=== PATIENT | male | born 1960 | race Caucasian/White ===

== ENCOUNTER 2024-11-14 13:52 | Outpatient (CLI) | payer MEDICARE, SELFPAY ==
--- NOTE | 2024-11-14 14:03 | XR_ITS ---
WS: [id number] XR ribs LT 2V* [id number] REASON FOR EXAM: CHEST DISCOMFORT/R SIDED RIB PAIN FINDINGS: No acute rib fracture or rib lesion. No underlying pleural abnormality. XR/XR ribs LT 2V* [id number] IMPRESSION: No significant rib abnormality.
--- NOTE | 2024-11-14 14:03 | XR_ITS ---
WS: [id number] XR chest 2V* [id number] REASON FOR EXAM: CHEST DISCOMFORT/R SIDED RIB PAIN FINDINGS: Moderate tortuosity and mild ectasia of the thoracic aorta with normal heart size. Calcified granulomas disease bilaterally. There is an ill-defined area of lung opacity at the level of the aortic arch on the PA view which is difficult to localize on the lateral view. There is irregular lucency in the upper lung lopez. The hemidiaphragms are mildly flattened. Mild wedge-shaped compression deformity of T6 of unknown chronicity. XR/XR chest 2V* [id number] IMPRESSION: No acute abnormality. Probable obstructive lung disease. Opacity in the upper left lung could represent postinflammatory change however a more significant abnormality could exist. A CT scan of the chest is recommend ed and follow-up to exclude lung mass.
== END 2024-11-14 13:53 | disposition home or self-care (01) ==
PROVIDERS: PCP Family Medicine; Visit Provider Nurse Practitioner Family
DX: R07.89 Other chest pain (principal); R07.81 Pleurodynia; R91.8 Other nonspecific abnormal finding of lung field; I77.810 Thoracic aortic ectasia; J84.10 Pulmonary fibrosis, unspecified; M48.54XA Collapsed vertebra, not elsewhere classified, thoracic region, initial encounter for fracture
CPT/HCPCS: 71046; 71100

== ENCOUNTER 2024-12-17 13:50 | Outpatient (CLI) | payer MEDICARE, SELFPAY ==
--- NOTE | 2024-12-17 14:02 | CTR_ITS ---
PROCEDURE INFORMATION: Exam: CT Chest With Contrast; Diagnostic Exam date and time: 12/17/2024 2:27 PM Age: 64 years old Clinical indication: Abnormal findings; Abnormal radiologic exam of lung or chest; Additional info: Abnormal chest xray/chest discomfort TECHNIQUE: Imaging protocol: Diagnostic computed tomography of the chest with contrast. Radiation optimization: All CT scans at this facility use at least one of these dose optimization techniques: automated exposure control; mA and/or kV adjustment per patient size (includes targeted exams where dose is matched to clinical indication); or iterative reconstruction. Contrast material: OMNI 350; Contrast volume: 100 ml; Contrast route: INTRAVENOUS (IV); COMPARISON: CR XR chest 2V* [id number] 11/14/2024 2:46 PM RADIATION DOSE METRICS: Total DLP (mGy-cm): 382.29 FINDINGS: Lungs: Emphysematous COPD. Parenchymal fibrosis bilaterally, greatest in the left apex. Pleural spaces: Unremarkable. No pneumothorax. No pleural effusion. Heart: Unremarkable. No cardiomegaly. No pericardial effusion. Lymph nodes: Unremarkable. No enlarged lymph nodes. Vasculature: Unremarkable. No aortic aneurysm. Liver: Hepatic cysts. Bones/joints: Unremarkable. No acute fracture. Soft tissues: Unremarkable. CT/CT chest w con* [id number] IMPRESSION: Chronic changes. No acute cardiopulmonary disease. COMMENTS: The presence of pulmonary emphysema on CT is an independent risk factor for lung cancer. In the absence of a history or active diagnosis of lung cancer, it is recommended that this patient with emphysema be evaluated for enrollment in a low dose CT lung cancer screening program.
[2024-12-17 14:24] LABS: Blood Urea Nitrogen 19 mg/dL (8-23)
[2024-12-17] MEDS: iohexol 350 mg/mL 500 mL Btl (per mL) IV (14:36)
== END 2024-12-17 13:51 | disposition home or self-care (01) ==
LOC: RAD 13:52
PROVIDERS: Radiology Neuroradiology; PCP Family Medicine; Visit Provider Nurse Practitioner Family
DX: R91.8 Other nonspecific abnormal finding of lung field (principal); R07.89 Other chest pain; J43.0 Unilateral pulmonary emphysema [MacLeod's syndrome]; J84.10 Pulmonary fibrosis, unspecified
CPT/HCPCS: 71260; 82565; 84520

== ENCOUNTER 2025-02-07 09:55 | Emergency (ER) | payer MEDICARE, SELFPAY ==
[2025-02-07 10:04] VITALS: BP 162/86; PULSE 70; TEMP 36.3; O2SAT 100; BMI 25.8
[2025-02-07 10:34] LABS: Hematocrit 43.6 % (37-53); Hemoglobin 14.40 g/dL (11.27-16.99); Mean Corpuscular HGB Conc 33.0 g/dL (30-55); Mean Corpuscular Hemoglobin 28.3 pg (27-33); Mean Corpuscular Volume 85.8 fl (82-101); Nucleated Red Blood Cells % 0 %; Platelet Count 297 10^3/cmm (157-399); Red Blood Count 5.08 10^6/uL (3.85-5.65); White Blood Count 14.73 10^3/uL (3.29-11.43)
--- NOTE | 2025-02-07 10:34 | ECG_ITS ---
[facility] Test Date: 2025-02-07 Pat Name: Shai Owens Department: Room: Gender: Male [employer]: : 1960 Requested By: Juan Palmer Order Number: [id number] Abel MD: Maxwell Stone M.D. Measurements Intervals [place] Rate: 68 P: 52 OK: 157 QRS: 70 QRSD: 82 T: 60 QT: 403 QTc: 429 Interpretive Statements SINUS RHYTHM No previous ECG available for comparison Electronically Signed On 02-07-2025 22:38:11 CDT by Maxwell Stone M.D. [email or web address]
[2025-02-07 10:52] LABS: Alanine Aminotransferase 36 U/L (0-41); Albumin Level 4.2 g/dL (3.5-5.2); Alkaline Phosphatase 80 U/L (40-130); Anion Gap 19.3 (5-19); Aspartate Amino Transferase 21 U/L (0-40); Blood Urea Nitrogen 21 mg/dL (8-23); Calcium 9.4 mg/dL (8.5-10.5); Carbon Dioxide 19 mmol/L (22-29); Chloride 101 mmol/L (98-107); Creatinine Clr Calc Pharmacy 69.3017; Globulin 3.4 g/dL (1.3-4.6); Glucose 128 mg/dL (65-115); Lipase 20 U/L (13-60); Osmolality Calculated 285 mOsm/kg (285-295); Potassium 4.3 mmol/L (3.5-5.1); Sodium 135 mmol/L (136-145); Total Protein 7.6 g/dL (6.6-8.7)
--- NOTE | 2025-02-07 11:14 | ED_ITS ---
HPI - Male Genitourinary 2 General: Chief complaint: Urogenital-Male Stated complaint: lt side abd pain Time Seen by Provider: 02/07/25 10:15 History of Present Illness: 64-year-old male presents emergency comp laining of left-sided abdominal pain. Has not had a bowel movement last 3 to 4 days. Having difficulty with urination as well denies any hematuria no dysuria urgency or frequency was significant difficulty starting urination. No vomiting or diarrhea no fever sweats or chills Associated symptoms: Reports nausea; Deny dysuria Related Data Home Medications ?Medication ?Instructions ?Recorded ?Confirmed albuterol sulfate 90 mcg/actuation 2 puff inhalation Q 6H PRN 02/07/25 02/07/25 aerosol inhaler Shortness Of Breath guaifenesin 600 mg tablet, 600 mg PO DAILY PRN Congest ion 02/07/25 02/07/25 extended release 12 hr (Mucinex) ibuprofen 200 mg tablet (Advil) 200 mg PO Q6H PRN Pain 02/07/25 02/07/25 simethicone 40 mg/0.6 mL oral 15 ml PO Q4H PRN Indiges tion 02/07/25 02/07/25 drops,suspension Previous Rx's ?Medication ?Instructions ?Recorded hydrocodone 5 mg-acetaminophen 325 1 tab PO Q6H PRN pa in #20 tabs 02/07/25 mg tablet promethazine 25 mg tablet 25 mg PO Q6H PRN nausea and 02/07/25 vomiting #20 tabs tamsulosin 0.4 mg capsule 0.4 mg PO DAILY #10 caps Allergies Allergy/AdvReac Type Severity Reaction Status Date / Time No Known Allergies Allergy Verified 02/07/25 10:10 Review of Systems 2 Const: Denies: fever(s) or chills Card: Denies: chest pain Resp: Denies: dyspnea GI: Reports: abdominal pain and nausea : Reports: urinary dribbling and difficulty starting urination; Denies: dysuria, urinary frequency or urinary urgency Musc: Denies: neck pain or back pain Skin/Breast: Denies: rash Physical Exam 2 Const: COMMON NORMALS: no acute distress GENERAL APPEARANCE: cooperative and comfortable ORIENTATION/CONSCIOUSNESS: Yes awake, Yes oriented to person, Yes oriented to place and Yes oriented to time HENMT: COMMON NORMALS: normocephalic, atraumatic and hearing grossly normal bilaterally HEAD & SCALP: normocephalic and atraumatic Resp: COMMON NORMALS: normal respiratory effort, No retractions, No use of accessory muscles and clear to auscultation bilaterally AUSCULTATION: clear to auscultation bilaterally Cardio: COMMON NORMALS: regular rate, regular rhythm and No murmurs present (Cardio) RATE: regular rate RHYTHM: regular rhythm GI: COMMON NORMALS: Soft to palpation and No hepatosplenomegaly present A USCULTATION: Yes normoactive bowel sounds PALPATION: Yes Soft to palpation, No Tenderness to palpation present (GI), No Guarding due to palpation present (GI) and Yes No hepatosplenomegaly present Extremity: COMMON NORMALS: normal to inspection, capillary refill normal, no clubbing, cyanosis or edema, no calf tenderness and no pedal edema Neuro: SENSORIUM/ORIENTATION: Yes oriented to person, Yes oriented to place and Yes oriented to time Skin: COMMON NORMALS: no rashes or lesions noted GENERAL SKIN EXAM: no rashes or lesions noted Course 2 Vital Signs: Vital signs: Vital Signs Temperature 97.4 F L 02/07/25 10:04 Pulse Rate 70 02/07/25 10:04 Blood Pressure 162/86 02/07/25 10:04 Pulse Oximetry 100 02/07/25 10:04 Oxygen Delivery Me thod Room Air 02/07/25 10:04 MDM - Male Medical Decision Making Left UVJ stone 2 mm. Patient has already had significant improvement of symptoms since arriving he states he feels most of the pain has resolved. Given the size of the stones in the CT it is likely he will pass this on his own his pain is well-controlled there is no sign of renal function compromise. No sign of cystitis discharge patient home on tamsulosin hydrocodone promethazine as needed for pain referral to urology strain urine. Medical Records I reviewed the patient's medical records. Lab Data I reviewed the patient's lab results. 02/07/25 10:29 02/07/25 10:29 Radiology Impressions Abdomen/Pelvis CT 02/07/25 11:46 IMPRESSION: 1. 2 mm partially obstructing stone at the LEFT UVJ with mild LEFT hydronephrosis and hydroureter. There is inflammatory stranding about the LEFT kidney. An additional 2 mm nonobstructing stone is seen in the LEFT kidney. There is also a single punctate nonobstructing stone in the RIGHT kidney. 2. Colonic diverticulosis as well as several other minor chronic findings in the abdomen and pelvis. 3. Extensive groundglass densities identified in the lower lung zones with emphysematous changes. Laboratory Results WBC 14.73 10^3/uL (3.29-11.43) H 02/07/25 10:29 RBC 5.08 10^6/uL (3.85-5.65) 02/07/25 10:29 Hgb 14.40 g/dL (11.27-16.99) 02/07/25 10:29 Hct 43.6 % (37-53) 02/07/25 10: MCV 85.8 fl (82-101) 02/07/25 10:29 MCH 28.3 pg (27-33) 02/07/25 10: MCHC 33.0 g/dL (30-55) 02/07/25 10: RDW 13.4 % (12.1-15.1) 02/07/25 10:29 Plt Count 297 10^3/cmm (157-399) 02/07/25 10:29 MPV 8.8 fL (7.4-10.4) 02/07/25 10:29 Neut % (Auto) 77.4 % 02/07/25 10:29 Lymph % (Auto) 10.7 % 02/07/25 10:29 Johnston % (Auto) 8.8 % 02/07/25 10:29 Eos % (Auto) 1.5 % 02/07/25 10:29 Baso % (Auto) 0.7 % 02/07/25 10:29 Neut # (Auto) 11.40 10^3/uL (1.8-7.7) H 02/07/25 10:29 Lymph # (Auto) 1.6 10^3/uL (0.8-4.8) 02/07/25 10:29 Johnston # (Auto) 1.3 10^3/uL (0.2-0.9) H 02/07/25 10:29 Eos # (Auto) 0.2 10^3/uL (0.0-0.8) 02/07/25 10:29 Baso # (Auto) 0.1 10^3/uL (0.0-0.1) 02/07/25 10: Nucleated RBC % (auto) 0 % 02/07/25 10: Nucleated RBCs # 0.0 /100WBC 02/07/25 10: Sodium 135 mmol/L (136-145) L 02/07/25 10: Potassium 4.3 mmol/L (3.5-5.1) 02/07/25 10: Chloride 101 mmol/L (98-107) 02/07/25 10: Carbon Dioxide 19 mmol/L (22-29) L 02/07/25 10: Anion Gap 19.3 (5-19) H 02/07/25 10: BUN 21 mg/dL (8-23) 02/07/25 10: Creatinine 1.1 mg/dL (0.7-1.2) 02/07/25 10: GFR Calculation 67.0 mL/min (90-130) L 02/07/25 10: Glucose 128 mg/dL (65-115) H 02/07/25 10:29 Calculated Osmolality 285 mOsm/kg (285-295) 02/07/25 10: Calcium 9.4 mg/dL (8.5-10.5) 02/07/25 10: Total Bilirubin 0.3 mg/dL (0.15-1.2) 02/07/25 10: AST 21 U/L (0-40) 02/07/25 10: ALT 36 U/L (0-41) 02/07/25 10: Alkaline Phosphatase 80 U/L (40-130) 02/07/25 10: Total Protein 7.6 g/dL (6.6-8.7) 02/07/25 10: Albumin 4.2 g/dL (3.5-5.2) 02/07/25 10: Globulin 3.4 g/dL (1.3-4.6) 02/07/25 10: Lipase 20 U/L (13-60) 02/07/25 10:29 Urine Color Yellow (Yellow) 02/07/25 11:02 Urine Appearance Clear (CLEAR) 02/07/25 11:02 Urine pH 5.5 (5-7) 02/07/25 11:02 Ur Specific [place]ner 1.027 (1.005-1.030) 02/07/25 11:02 Urine Protein Trace (Negative) A 02/07/25 11:02 Urine Glucose (UA) Negative (Normal) 02/07/25 11:02 Urine Ketones Trace (Negative) 02/07/25 11:02 Urine Blood 3+ (Negative) A 02/07/25 11:02 Urine Nitrate Negative (Negative) 02/07/25 11:02 Urine Bilirubin Negative (Negative) 02/07/25 11:02 Urine Urobilinogen 1.0 mg/dL (Negative) 02/07/25 11:02 Ur Leukocyte Esterase Negative (Negative) 02/07/25 11:02 Urine RBC 21-50 /hpf (0-2) H 02/07/25 11:02 Urine WBC 0-5 /hpf (0-5) 02/07/25 11:02 Ur Squamous Epith Cells 0-5 /hpf (0-5) 02/07/25 11:02 Amorphous Sediment Not Reportable 02/07/25 11:02 Urine Bacteria None seen /hpf (NONE) 02/07/25 11:02 Hyaline Casts 4.11 /lpf 02/07/25 11:02 All radiology interpretation(s) finalized by discharge Discharge Plan Discharge Patient Disposition: Home Clinical Impression: Left nephrolithiasis Condition: Stable Prescriptions: New hydrocodone-acetaminophen 5-325 mg tablet 1 tab PO Q6H PRN (Reason: pain) Qty: 20 0RF promethazine 25 mg tablet 25 mg PO Q6H PRN (Reason: nausea and vomiting) Qty: 20 0RF tamsulosin 0.4 mg capsule 0.4 mg PO DAILY Qty: 10 0RF No Action albuterol sulfate 90 mcg/actuation HFA aerosol inhaler 2 puff INHALATION Q6H PRN (Reason: Shortness Of Breath) ibuprofen [Advil] 200 mg Tablet 200 mg PO Q6H PRN (Reason: Pain) simethicone [Gas Relief (simethicone)] 40 mg/0.6 mL Drops,Suspension 15 ml PO Q4H PRN (Reason: Indigestion) guaifenesin [Mucinex] 600 mg Tablet Extended Release 12hr 600 mg PO DAILY PRN (Reason: Congestion) Discharge Orders: Discharge ED (Routine); Ordered 02/07/25 Ordered By: Juan Jensen Referrals: Arnaud Ramsey MD [Primary Care Provider, Family Practice] Discharge Diet: Usual diet Discharge Activity: Increase activity as tolerated Patient Instructions: Kidney Stones (ED), How to Strain Your Urine (ED), Opioid Safety, Pain Management, Patient Portal & Iris Instructions Activity Restrictions/Additional Instructions: [facility]. It is very important that you follow up as instructed or that you return to the Emergency Department should you have concerns or if your condition changes or worsens in any way. Emergency department visits are focused on emergent conditions, in some cases you may require further evaluation on an outpatient basis. You were seen in the emergency room with flank pain. Evaluation showed you have a kidney stone that is 2 mm in the left ureter. It is about to drop to the bladder. You were given pain medications and nausea medications at home you were also given tamsulosin will help the stone to pass. You should strain your urine to collect the stone and follow-up with urology. Case management will make arrangements for you to follow-up with the urology clinic (Please note that included in your discharge packet is information concerning opioid safety and pain management. This information is given to all patients were discharged from the ER regardless of their discharge diagnosis or the medicines they usually take or are prescribed.) Print Language: Turkmen Coding Level of Care Code ED Personnel Assistant for Pam Morales
[2025-02-07 11:22] LABS: Glucose Urine UA Negative (Normal); Nitrate Urine Negative (Negative); Specific Gravity, Urine 1.027 (1.005-1.030)
[2025-02-07 11:27] LABS: Add Urine Microscopic? YES
--- NOTE | 2025-02-07 11:46 | CT_ITS ---
WS: [id number] Exam: CT kidney stone [id number] Date/Time of Exam: 02/07/2025 12:20 PM Reason For Exam: flank pain/hematuria DLP: All CT scans at [facility] use at least one of these dose optimization techniques: automated exposure control; mA and/or kV adjustment per patient size (includes targeted exams where dose is matched to clinical indication); or iterative reconstruction. There is a 2 mm partially obstructing stone at the LEFT UVJ with mild LEFT hydronephrosis and hydroureter. There is inflammatory stranding about the LEFT kidney. An additional 2 mm stone is noted in the LEFT kidney. A single punctate nonobstructing stone noted in the RIGHT kidney. Extensive groundglass densities noted in the bilateral lung zones with emphysematous change. The gallbladder is unremarkable. Subcentimeter cyst in the LEFT lobe of the liver. 3.3 cm cyst seen in the inferior RIGHT hepatic lobe. Hiatal hernia. The spleen is unremarkable. The pancreas appears normal. The abdominal aorta is normal in caliber. Unremarkable adrenal glands. The IVC appears normal. Small bowel loops are not dilated. Colonic diverticulosis but no sign of acute diverticulitis. No lymphadenopathy or ascites. No abdominal mass. No sign of acute appendix. Surgical anastomosis noted at the rectosigmoid junction. No mass in this region. Urinary bladder is smooth in contour. Calcifications in the prostate gland. Fat filled LEFT inguinal hernia. Small fat filled umbilical hernia. At least 2 small fat filled central ventral hernias seen just above the umbilicus. No destructive bone lesions are seen. CT/CT kidney stone [id number] IMPRESSION: 1. 2 mm partially obstructing stone at the LEFT UVJ with mild LEFT hydronephros is and hydroureter. There is inflammatory stranding about the LEFT kidney. An a dditional 2 mm nonobstructing stone is seen in the LEFT kidney. There is also a single punctate nonobstructing stone in the RIGHT kidney. 2. Colonic diverticulosis as well as several other minor chronic findings in th e abdomen and pelvis. 3. Extensive groundglass densities identified in the lower lung zones with emph ysematous changes.
--- NOTE | 2025-02-07 13:22 | PC.NURSE ---
Gave pt urine strainer and urine cup to catch stone.
[2025-02-07 13:23] VITALS: BP 144/111; PULSE 94; O2SAT 95
--- NOTE | 2025-02-11 07:59 | DCPLANNER ---
Urology referral sent to [facility]
== END 2025-02-07 13:24 | disposition home or self-care (01) ==
PROVIDERS: Emergency Provider Family Medicine; PCP Family Medicine
DX: N20.0 Calculus of kidney (principal)
CPT/HCPCS: 51798; 74176; 80053; 81001; 83690; 85025; 87086; 93005; 99284

== ENCOUNTER 2025-04-22 13:39 | Outpatient (CLI) | payer MEDICARE, SELFPAY ==
--- NOTE | 2025-04-22 13:46 | US_ITS ---
WS: [id number] URINARY BLADDER ULTRASOUND HISTORY: NEPHROLITHIASIS COMPARISON: None available. Urinary bladder is well distended. No intraluminal filling defect. No free fluid adjacent to the urinary bladder. Prostate gland is mildly enlarged and heterogeneous. Prostate measures 3.1 x 3.9 x 3.5 cm. Bladder Wall Thickness: 0.3 cm. Bladder Prevoid: 7.7 cm x 7.1 cm x 7.3 cm. Prevoid volume: 207.9,21.9 ml. Postvoid volume: 0 ml. US/US bladder [id number] IMPRESSION: 1. Normal urinary bladder. 2. No post void residual within the urinary bladder.
== END 2025-04-22 13:40 | disposition home or self-care (01) ==
LOC: RAD 13:40
PROVIDERS: PCP Family Medicine; Visit Provider Family Medicine
DX: N20.0 Calculus of kidney (principal); N40.0 Benign prostatic hyperplasia without lower urinary tract symptoms
CPT/HCPCS: 76857

== ENCOUNTER 2025-05-02 12:52 | Outpatient (CLI) | payer MEDICARE, SELFPAY ==
--- NOTE | 2025-05-02 13:05 | US_ITS ---
WS: [id number] RENAL ULTRASOUND HISTORY: NEPHROLITHIASIS COMPARISON: 02/07/2025 TECHNIQUE: 2-D and color Doppler imaging of the kidney submitted. Right kidney: 9.3 cm x 4.2 cm x 4.2 cm. Cortex: 1.0 cm Normal echogenicity with no hydronephrosis or mass. Left kidney: 10.2 cm x 4.5 cm x 5.0 cm. Cortex: 1.3 cm Normal echogenicity with no hydronephrosis or mass. Aorta: Normal. Urinary Bladder: Well-distended urinary bladder. Only the RIGHT ureteral jet is identified. US/US renal BI* [id number] IMPRESSION: 1. No hydronephrosis or perinephric fluid collections. 2. Only the RIGHT ureteral jet is identified in the urinary bladder. No LEFT r enal hydronephrosis therefore there is no significant obstruction of the ureter .
== END 2025-05-02 12:53 | disposition home or self-care (01) ==
LOC: RAD 12:53
PROVIDERS: PCP Family Medicine; Visit Provider Family Medicine
DX: N20.0 Calculus of kidney (principal); R93.41 Abnormal radiologic findings on diagnostic imaging of renal pelvis, ureter, or bladder
CPT/HCPCS: 76770